=== PATIENT | male | born 2000 ===

== ENCOUNTER 2024-02-03 19:53 | Outpatient (CLI) | payer OTHER, SELFPAY | END 2024-02-03 19:54 | disposition home or self-care (01) | LOC: AMB 02-08 04:16 | PROVIDERS: Visit Provider Student in an Organized Health Care Education/Training Program | DX: F10.129 Alcohol abuse with intoxication, unspecified (principal); S09.93XA Unspecified injury of face, initial encounter; W18.30XA Fall on same level, unspecified, initial encounter; Y93.89 Activity, other specified; Y92.214 College as the place of occurrence of the external cause | CPT/HCPCS: A0425; A0429 ==

== ENCOUNTER 2024-02-03 20:16 | Emergency (ER) | payer OTHER, SELFPAY ==
[2024-02-03] VITALS (7 sets, daily range): BP systolic 109–143; BP diastolic 66–93; PULSE 78–90; RESP 16–20; TEMP 36.7; O2SAT 92–99; BMI 24.4
[2024-02-03 20:52] LABS: Basophils Absolute Auto 0.03 K/uL (0.00-0.30); Basophils Percent Auto 0.4 % (0.0-3.0); Eosinophils Absolute Auto 0.05 K/uL (0.00-0.50); Eosinophils Percent Auto 0.7 % (0.0-7.0); Hemoglobin* 14.6 gm/dL (13.5-17.5); Immature Granulocytes Abs Auto 0.01 K/uL (0.00-0.30); Immature Granulocytes Pct Auto 0.1 %; Lymphocytes Absolute Auto 2.82 K/uL (0.90-2.90); Lymphocytes Percent Auto 39.6 % (20-44); Mean Corpuscular HGB Conc 35 gm/dL (32-36); Mean Corpuscular Hemoglobin 31 pg (26-34); Mean Corpuscular Volume 90 fL (80-100); Monocytes Percent Auto 6.6 % (0.0-11.0); Neutrophils Absolute Auto 3.75 K/uL (1.7-7.0); Neutrophils Percent Auto 52.6 % (42.0-72.0); Platelet Count* 327 K/uL (140-440); RDW Coefficient of Variation % 11.8 % (11.5-15.5); Red Blood Count 4.65 m/uL (4.30-5.90); White Blood Count* 7.13 K/uL (4.50-11.00)
[2024-02-03 20:54] LABS: Slide Review Reflex No
[2024-02-03 21:08] LABS: Chloride* 109 mmol/L (96-114); Potassium* 3.4 mmol/L (3.6-5.1); Sodium* 144 mmol/L (135-149)
[2024-02-03 21:11] LABS: Anion Gap 10 mEq/L (7-15); Blood Urea Nitrogen* 15 mg/dL (5-24); Carbon Dioxide* 25 mmol/L (20-32); Creatinine* 0.8 mg/dL (0.5-1.5); Est. Creatinine Clearance* 160.32; Estimated Glomerular Filt Rate 129 ml/min; Ethanol* 0.28 % (0.01-0.03); Glucose* 107 mg/dL (60-115)
--- NOTE | 2024-02-03 21:27 | ED_ITS ---
HPI - Alcohol General Date Seen: 02/03/24 Chief Complaint: Alcohol/Intoxication Stated Complaint: ETOH/fall Time Seen by Provider: 02/03/24 20:19 Source: EMS Mode of arrival: EMS Limitations: altered mental status History of Present Illness HPI narrative: Patient is a 22-year-old year old male brought in by EMS for alcohol intoxication and a fall. He was at a local concert when other const ago were saw him fall and called EMS personnel to him who were stationed there. He he was clearly very intoxicated and had an abrasion to his nose and left knee. He was then brought him in. He states he cath done in the years 2023 but was otherwise not this given the much information. At this time patient is still very intoxicated and I am unable to get a good history from him. Related Data Home Medications Medication Instructions Recorded Confirmed No Known Home Medications 02/03/24 02/03/24 Allergies Allergy/AdvReac Type Severity Reaction Status Date / Time No Known Drug Allergies Allergy Verified 02/03/24 21:21 Review of Systems Status of ROS Reports: unobtainable due to mental status [facility] Medical History (Updated 02/03/24 @ 22:07 by Solitario Sadler DO) No significant past medical history Surgical History (Updated 02/03/24 @ 20:42 by Kiet Hammond RN) No significant past surgical history Social History Smoking Status: Never smoker Second hand tobacco smoke exposure: No How often do you have a drink containing alcohol: monthly or less AUDIT-C Alcohol total score: 1 Non-prescribed substance use: denies use Exam Narrative: Exam Narrative: Const: Well-nourished, Well-developed, appears intoxicated Eyes: PERRL, no conjunctival injection, and symmetrical lids HENT: Atraumatic external nose and ears. Moist mucous membranes. Neck: Symmetric, trachea midline, No thyromegaly. CVS: RRR, No murmurs or gallops. Peripheral pulses 2+ and equal in all extremities RESP: Unlabored respiratory effort. Clear to auscultation bilaterally. GI: Nontender/Nondistended, No rebound or guarding. MSK:Extremities w/o deformity, Normal Active ROM Skin: Warm, Dry. Abrasion to left knee about 1 cm x 1 cm and small abrasion to the bridge of his nose Neuro: Normal Muscle tone, No focal neurological deficits. Psych: Awake, Alert, does appears intoxicated Const: Vital Signs, click to edit/add: Vital Signs - 24 hr 02/03/24 20:21 Temperature 98.1 F Pulse Rate [Pulse Oximeter] 83 Respiratory Rate 16 Blood Pressure [Ri ght Upper Arm] 143/93 H Pulse Oximetry 98 Oxygen Delivery Me thod Room Air Course Vital Signs Vital signs: Initial Vital Signs Temperature 98.1 F 02/03/24 20:21 Temperature Source Temporal Artery Scan 02/03/24 20:21 Pulse Rate 83 02/03/24 20:21 Respiratory Rate 16 02/03/24 20:21 Blood Pressure 143/93 H 02/03/24 20:21 Blood Pressure Mean 109 H 02/03/24 20:21 Blood Pressure Position Sitting 02/03/24 20:21 Pulse Oximetry 98 02/03/24 20:21 Oxygen Delivery Method Room Air 02/03/24 20:21 Vital Signs Temperature 98.1 F 02/03/24 20:21 Pulse Rate 83 02/03/24 20:21 Respiratory Rate 16 02/03/24 20:21 Blood Pressure 143/93 H 02/03/24 20:21 Pulse Oximetry 98 02/03/24 20:21 Oxygen Delivery Method Room Air 02/03/24 20:21 Temperature 98.1 F 02/04/24 04:09 Pulse Rate 79 02/04/24 04:09 Respiratory Rate 20 02/04/24 04:09 Blood Pressure 108/74 02/04/24 04:09 Pulse Oximetry 98 02/04/24 04:09 Oxygen Delivery Method Room Air 02/04/24 04:09 Oxygen Flow Rate 2 02/03/24 22:21 MDM - Alcohol MDM Narrative Medical decision making narrative: Patient is a 23-year-old male presenting for alcohol intoxication. He was brought in by EMS and is clearly intoxicated. He has small abrasion to his nose in another abrasion to his left knee. Do not believe this is requiring imaging at this time. All symptoms appear to be from alcohol intoxication. Will do a CBC and BMP along with any ETOH level. The also alcohol level came back at 0.28% consistent with the expectation that he is intoxicated. CBC and BMP showed no concerning abnormalities potassium is very mildly low at 3.4. Of note while using the emergency department whenever he would fall sleep you start to desat into the mid 80s in the quickly bones back up when he will be waking up. He is audibly snoring. Do this we are waiting to discharge the patient home until he can sleep without desatting. He will be signed out to Dr. Gan pending final disposition. Lab Data Labs: Lab Results 02/03/24 Range/Units 20:46 WBC 7.13 (4.50-11.00) K/uL RBC 4.65 (4.30-5.90) m/uL Hgb 14.6 (13.5-17.5) gm/dL Hct 42.0 (37.0-53.0) % MCV 90 (80-100) fL MCH 31 (26-34) pg MCHC 35 (32-36) gm/dL RDW Coeff of Natalie 11.8 (11.5-15.5) % Plt Count 327 (140-440) K/uL Neut % (Auto) 52.6 (42.0-72.0) % Lymph % (Auto) 39.6 (20-44) % [place] % (Auto) 6.6 (0.0-11.0) % Eos % (Auto) 0.7 (0.0-7.0) % Baso % (Auto) 0.4 (0.0-3.0) % Neut # (Auto) 3.75 (1.7-7.0) K/uL Lymph # (Auto) 2.82 (0.90-2.90) K/uL [place] # (Auto) 0.50 (0.00-0.90) K/UL Eos # (Auto) 0.05 (0.00-0.50) K/uL Baso # (Auto) 0.03 (0.00-0.30) K/uL Abs Immat Gran (auto) 0.01 (0.00-0.30) K/uL Imm/Tot Granulo (auto) 0.1 % Sodium 144 (135-149) mmol/L Potassium 3.4 L (3.6-5.1) mmol/L Chloride 109 (96-114) mmol/L Carbon Dioxide 25 (20-32) mmol/L Anion Gap 10 (7-15) mEq/L BUN 15 (5-24) mg/dL Creatinine 0.8 (0.5-1.5) mg/dL Estimated Creat Clear 160.32 Estimated GFR 129 ml/min Glucose 107 (60-115) mg/dL Calcium 9.0 (8.4-10.6) mg/dL Ethyl Alcohol 0.28 H (0.01-0.03) % Discharge Plan Discharge Clinical Impression: Alcoholic intoxication Patient Disposition: Home, Self-Care Condition: Stable Instructions: Alcohol Intoxication (DC) Additional Instructions: Is important that he cut back on use of alcohol as it can cause long-term dangerous issues. Return to the Emergency department for any new or worsening symptoms. Activity Level: No Restrictions Discharge Diet: Regular Prescriptions: No Action No Known Home Medications Follow Up/Referrals: Provider,Not a Local [Primary Care Provider] - Stand Alone Forms: RealPage Info Instructions
[2024-02-04 00:02] VITALS: BP 115/79; PULSE 83; RESP 20; O2SAT 95
[2024-02-04 02:02] VITALS: BP 120/70; PULSE 87; RESP 20; O2SAT 93
[2024-02-04 04:09] VITALS: BP 108/74; PULSE 79; RESP 20; TEMP 36.7; O2SAT 98
== END 2024-02-04 04:14 | disposition home or self-care (01) ==
PROVIDERS: Student in an Organized Health Care Education/Training Program; Emergency Provider Internal Medicine
DX: F10.129 Alcohol abuse with intoxication, unspecified (principal)
CPT/HCPCS: 36415; 80048; 82077; 85025; 94761; 99283